=== PATIENT | female | born 1955 | race Caucasian/White ===

== ENCOUNTER → 2016-10-13 | Outpatient (CLI) | payer MEDICARE ==
[2016-10-13 21:02] LABS: Basophils # (A) 0.2 k/uL (0-0.2); Basophils % (A) 2 %; CH 30.1; CHCM 31.8; Eosinophils # (A) 0.1 k/uL (0-0.7); Eosinophils % (A) 2 %; HCT 40.6 % (34.0-46.0); HDW 2.74; HGB 12.9 gm/dL (11.4-16.0); Luc # (Auto) 0.09; Luc % (Auto) 1; Lymphocytes # (A) 2.2 k/uL (1.0-4.8); Lymphocytes % (A) 34 %; MCH 30.1 pg (25.0-35.0); MCHC 31.6 g/dL (31.0-37.0); Mean Platelet Volume 8.6; Monocytes # (A) 0.5 k/uL (0-1.0); Monocytes % (A) 7 %; Neutrophils # (A) 3.4 k/uL (1.3-7.7); Neutrophils % (A) 53 %; RBC 4.28 m/uL (3.80-5.40); RDW 14.6 % (11.5-15.5); WBC 6.4 k/uL (3.8-10.6); WBC (Perox) 6.14
[2016-10-13 21:14] LABS: ALT 29 U/L (9-52); AST 26 U/L (14-36); Alkaline Phosphatase 73 U/L (38-126); Anion Gap 12 mmol/L; Blood Urea Nitrogen 15 mg/dL (7-17); Calcium 9.8 mg/dL (8.4-10.2); Carbon Dioxide 22 mmol/L (22-30); Chloride 106 mmol/L (98-107); Glucose 101 mg/dL (74-99); Non-African American GFR(MDRD) 51 (>60 ml/min/1.73 sqM); Potassium 5.1 mmol/L (3.5-5.1); Sodium 140 mmol/L (137-145); Total Bilirubin 0.5 mg/dL (0.2-1.3); Total Protein 7.3 g/dL (6.3-8.2)
== END ==
LOC: LABMAIN 19:43
PROVIDERS: ATTEND Otolaryngology
DX: R22.0 Localized swelling, mass and lump, head (principal)
CPT/HCPCS: 36415; 80053; 84443; 85025

== ENCOUNTER 2016-12-01 04:56 | Inpatient (IN) | payer MEDICARE ==
[2016-12-01] MEDS ORDERED: LORazepam 2 MG/ML SYRINGE IV STA (05:00)
[2016-12-01] MEDS ORDERED: HYDROmorphone 1 MG/ML 1 ML SYRINGE IVP STA (05:00)
--- NOTE | 2016-12-01 05:04 | ED ---
Chest Pain HPI - General Stated Complaint: chest pain Time Seen by Provider: 12/01/16 04:56 Source: patient, EMS, RN notes reviewed Mode of arrival: EMS - History of Present Illness Initial Comments: Is a 61-year-old female with a history of throat cancer who had her last chemotherapy done about 2 weeks ago who states she had the onset around 8:30 last evening of sharp left-sided chest pain. She states get worse tonight she did take aspirin nitroglycerin without any relief. Is 10/10 in severity sharp in nature goes across her chest from below her left breast to the middle. She has some nausea with it no fevers chills or sweats. She was brought in by EMS for evaluation. She states it does get worse when she moves proximal or bruits. She also states she recently got I port placed in her right upper chest wall. MD Complaint: chest pain - Related Data Home Medications Medication Instructions Recorded Confirmed Albuterol Sulfate [Proair Hfa] 2 puff INHALATION BID 03/17/16 12/01/16 Ezetimibe/Simvastatin [Vytorin 1 tab PO DAILY 03/17/16 12/01/16 10-40 mg Tablet] FLUoxetine HCL [Fluoxetine HCl] 20 mg PO DAILY 03/17/16 12/01/16 Levothyroxine Sodium [Synthroid] 75 mcg PO DAILY 03/17/16 12/01/16 Omeprazole [Omeprazole] 40 mg PO DAILY 03/17/16 12/01/16 Tiotropium 18 Mcg/Puff [Spiriva] 1 puff INHALATION BID 03/17/16 12/01/16 Topiramate [Topiramate] 50 mg PO DAILY 03/17/16 12/01/16 Previous Rx's Medication Instructions Recorded Clindamycin [Cleocin] 300 mg PO Q6H #40 capsule 09/17/16 Ondansetron Odt [Zofran Odt] 4 mg PO Q8HR PRN #12 tab 09/17/16 Allergies Allergy/AdvReac Type Severity Reaction Status Date / Time ceftriaxone sodium Allergy Anaphylaxis Verified 09/16/16 23:32 [From Rocephin] Sulfa (Sulfonamide Allergy Unknown Verified 09/16/16 23:32 Antibiotics) Childhood Review of Systems ROS Statement: Those systems with pertinent positive or pertinent negative responses have been documented in the HPI. ROS Other: All systems not noted in ROS Statement are negative. EKG Findings - EKG Results: EKG: interpreted by ERMD, sinus rhythm (EKG shows a rate of 98 PA interval 156 QRS duration 96 QT/QTc is 374/477 poor R-wave progression no acute ST-T wave changes) Past Medical History Past Medical History: COPD, Dementia Additional Past Medical History / Comment(s): MS History of Any Multi-Drug Resistant Organisms: None Reported Past Surgical History: Appendectomy, Hysterectomy, Joint Replacement, Orthopedic Surgery Additional Past Surgical History / Comment(s): carpal tunel bilateral hands, R rotator cuff Past Psychological History: Anxiety Smoking Status: Current every day smoker Past Alcohol Use History: None Reported Past Drug Use History: None Reported General Exam - General Exam Comments Initial Comments: This is a well-developed well-nourished anxious appearing female General appearance: alert, anxious Head exam: Present: atraumatic, normocephalic, normal inspection Eye exam: Present: normal appearance, PERRL, EOMI. Absent: scleral icterus, conjunctival injection, periorbital swelling ENT exam: Present: normal exam, mucous membranes moist Neck exam: Present: normal inspection. Absent: tenderness, meningismus, lymphadenopathy Respiratory exam: Present: normal lung sounds bilaterally, chest wall tenderness (Reproducible tenderness palpation over the left costal sternal junction additionally there is a port noted in her right upper chest wall with some ecchymosis. No evidence of any infectious process. No drainage.). Absent : respiratory distress, wheezes, rales, rhonchi, stridor Cardiovascular Exam: Present: regular rate, normal rhythm, normal heart sounds. Absent: systolic murmur, diastolic murmur, rubs, gallop, clicks GI/Abdominal exam: Present: soft, normal bowel sounds. Absent: distended, tenderness, guarding, rebound, rigid Extremities exam: Present: normal inspection, full ROM, normal capillary refill. Absent: tenderness, pedal edema, joint swelling, calf tenderness Back exam: Present: normal inspection Neurological exam: Present: alert, oriented X3, CN II-XII intact Psychiatric exam: Present: normal affect, normal mood Skin exam: Present: warm, dry, intact, normal color. Absent: rash Course Vital Signs 12/01/16 12/01/16 12/01/16 05:00 05:41 06:34 Temperature 98.1 F Pulse Rate 95 92 82 Respiratory 20 16 14 Rate Blood Pressure 144/81 128/69 126/68 O2 Sat by Pulse 93 L 100 100 Oximetry 12/01/16 12/01/16 12/01/16 06:44 06:51 07:15 Temperature 97.0 F L Pulse Rate 78 82 77 Respiratory 14 16 12 Rate Blood Pressure 127/74 161/80 142/73 O2 Sat by Pulse 100 100 100 Oximetry Chest Pain MDM - MDM X-ray shows evidence of infiltrates consistent with pneumonia. Patient will be admitted place on antibiotics she is ALLERGIC to ceftriaxone but can take penicillins. She was placed on pneumonia protocol with oncology consultation. Disposition Clinical Impression: Neutropenia, Pneumonia, Chest wall pain Disposition: ADMITTED IP TO THIS HOSP Condition: Stable
[2016-12-01 05:33] LABS: Aty Lym Flag Marked; CH 30.4; CHCM 33.2; HCT 25.7 % (34.0-46.0); HDW 2.42; MCH 31.1 pg (25.0-35.0); MCHC 33.9 g/dL (31.0-37.0); MCV 91.9 fL (80.0-100.0); Mean Platelet Volume 8.1; RDW 14.1 % (11.5-15.5)
[2016-12-01 05:36] LABS: HGB 8.7 gm/dL (11.4-16.0); WBC 0.7 k/uL (3.8-10.6)
[2016-12-01 05:40] LABS: ALT 51 U/L (9-52); AST 25 U/L (14-36); Alkaline Phosphatase 95 U/L (38-126); Amylase <30 U/L (30-110); Anion Gap 11 mmol/L; Blood Urea Nitrogen 13 mg/dL (7-17); Calcium 8.5 mg/dL (8.4-10.2); Carbon Dioxide 23 mmol/L (22-30); Chloride 102 mmol/L (98-107); Glucose 126 mg/dL (74-99); Magnesium 1.7 mg/dL (1.6-2.3); Non-African American GFR(MDRD) 56 (>60 ml/min/1.73 sqM); Potassium 3.8 mmol/L (3.5-5.1); Sodium 136 mmol/L (137-145); Total Bilirubin 0.5 mg/dL (0.2-1.3); Total Protein 6.3 g/dL (6.3-8.2)
--- NOTE | 2016-12-01 05:47 | XR ---
EXAM: XR Chest, 2 Views. CLINICAL HISTORY: Reason: Chest Pain TECHNIQUE: Frontal and lateral views of the chest. COMPARISON: 11/18/15. FINDINGS: Lungs: Patchy airspace opacities seen in both lower lobes, as well as within the right middle lobe, suggestive of a multifocal bronchopneumonia. Findings may also be aspiration related. Pleural spaces: No evidence of pleural effusion or pneumothorax. Heart: The heart is normal in size. Mediastinum: No mediastinal widening or shift. There is a right anterior chest wall Port-A-Cath with the tip at the SVC/RA junction.. Bones: Unremarkable. No acute fracture. IMPRESSION: Bilateral lower lobe and right middle lobe airspace opacities most likely representing a multifocal bronchopneumonia.
[2016-12-01 05:52] LABS: Creatine Kinase 38 U/L (30-135)
[2016-12-01 05:53] LABS: INR 1.1 (<1.1); Partial Thromboplastin Time 26.5 sec (22.0-30.0)
[2016-12-01 06:01] LABS: Add Differential Manual Differential
[2016-12-01 06:02] LABS: Manual Review Performed
[2016-12-01 06:05] LABS: Creatine Kinase MB 0.6 ng/mL (0.0-2.4); Troponin I <0.012 ng/mL (0.000-0.034)
[2016-12-01] MEDS ORDERED: FLUMAZENIL 0.1 MG/ML 5 ML VIAL IVP STA (06:30)
[2016-12-01] MEDS ORDERED: NALOXONE 0.4 MG/ML 1 ML VIAL IV STA (06:44)
[2016-12-01] MEDS ORDERED: PIPERACILLIN-TAZOBACTAM 3.375 GM in DEXTROSE/WATER 1 50ML.BAG IVPB STA (07:30)
[2016-12-01] MEDS ORDERED: LEVOFLOXACIN 750MG-D5W PMX 750 MG in DEXTROSE/WATER 1 150ML.BAG IVPB STA (07:36)
[2016-12-01] MEDS ORDERED: PNEUMONIA PROTOCOL UTILIZED 1 EACH MISC PO PRN (07:36)
[2016-12-01] MEDS ORDERED: ONDANSETRON ODT 4 MG TAB PO PRN (07:39)
[2016-12-01] MEDS: SODIUM CHLORIDE 0.9% 1,000 ML IV SCH ×2 (07:50→18:09)
[2016-12-01 08:31] LABS: Glucose,Whole Blood 137 mg/dL (75-99)
[2016-12-01] MEDS ORDERED: TIOTROPIUM 18 MCG/PUFF INHALER INHALATION SCH (09:00)
[2016-12-01] MEDS ORDERED: FLUoxetine HCL 20 MG CAP PO SCH (09:00)
[2016-12-01 09:45] VITALS: BMI 22.9
[2016-12-01] MEDS: LEVOTHYROXINE 75 MCG TAB PO SCH (09:51)
[2016-12-01] MEDS: ATORVASTATIN 20 MG TAB PO SCH (09:52)
[2016-12-01] MEDS: EZETIMIBE 10 MG TAB PO SCH (09:52)
[2016-12-01] MEDS: PANTOPRAZOLE 40 MG TABLET PO SCH (09:52)
[2016-12-01] MEDS: TOPIRAMATE 25 MG TAB PO SCH (09:53)
[2016-12-01 10:31] LABS: Hemoglobin A1C 5.6 % (4.2-6.1)
[2016-12-01] MEDS ORDERED: RX INFO: IV CONTRAST WAS GIVEN 1 EACH MISC MISCELLANE PRN ×2 (11:04→11:06)
[2016-12-01] MEDS: KETOROLAC 30 MG/ML 1 ML VIAL IVP PRN (11:20)
[2016-12-01] MEDS ORDERED: ALBUTEROL NEBULIZED 2.5 MG/3 ML INHALATION PRN (11:46)
[2016-12-01] MEDS ORDERED: valACYclovir HCL 1,000 MG TABLET PO PRN (11:46)
[2016-12-01] MEDS ORDERED: DIAZEPAM 5 MG TAB PO PRN (11:46)
[2016-12-01] MEDS ORDERED: ONDANSETRON 4 MG TAB PO PRN (11:46)
[2016-12-01] MEDS ORDERED: NITROGLYCERIN SL TABS 0.4 MG TAB SUBLINGUAL PRN (11:46)
[2016-12-01 11:49] LABS: Glucose,Whole Blood 98 mg/dL (75-99)
[2016-12-01] MEDS: IPRATROPIUM-ALBUTEROL 3 ML NEB INHALATION SCH ×3 (12:38→19:40)
[2016-12-01] MEDS: INSULIN LISPRO (humaLOG) 300 UNIT/3 ML VIAL SQ SCH ×3 (13:21→21:14)
--- NOTE | 2016-12-01 14:13 | HP ---
DATE OF ADMISSION: The patient is with a history of lymphoma actively receiving chemotherapy. A 61-year-old female came in with complaints of severe left upper quadrant pain, sharp in nature, radiating to the back and shoulder area. Patient was also complaining of shortness of breath, although patient does not have any subjective signs of shortness of breath. Patient is saturating well at 100% on 2 L, although I do not believe she will need oxygen and patient is not uncomfortable at this point of time, not in respiratory distress, although patient's lung exam shows rhonchus breath sounds bilaterally. Patient was started on Zosyn, was admitted with possibility of pneumonia. Patient has minimally elevated D-dimer, although my suspicion is low for PE. Patient's left upper quadrant abdominal pain increases with deep breathing. Patient denied any fever or chills. Patient denied any nausea, vomiting. REVIEW OF SYSTEMS: CONSTITUTIONAL: No fever, no malaise, no fatigue. HEENT: No recent visual problems or hearing problems. Denied any sore throat. CARDIOVASCULAR: No chest pain, orthopnea, PND, no palpitations, no syncope. PULMONARY: No shortness of breath, no cough, no hemoptysis. GASTROINTESTINAL: As mentioned earlier. NEUROLOGICAL: No headaches, no weakness, no numbness. HEMATOLOGICAL: Denies any bleeding or petechiae. GENITOURINARY: Denies any burning micturition, frequency, or urgency. MUSCULOSKELETAL/RHEUMATOLOGICAL: Denies any joint pain, swelling, or any muscle pain. ENDOCRINE: Denies any polyuria or polydipsia. The rest of the 14 point review of systems is negative. Home medications include: 1. Albuterol. 2. Vytorin. 3. Fluoxetine. 4. Levothyroxine. 5. Omeprazole. 6. Tiotropium. 7. Topamax. 8. Clindamycin. 9. Ondansetron. ALLERGIES: Allergic to CEFTRIAXONE although she tolerated Zosyn very well and SULFA drugs. PAST MEDICAL HISTORY: Significant for COPD, dementia, multiple sclerosis, and patient does have a history of B-cell lymphoma, appendectomy, hysterectomy, joint replacement surgery, hernia repair, anxiety. The patient does smoke. Denied any alcohol abuse or any drug abuse. Family history is unknown, are not documented here. PHYSICAL EXAMINATION: VITAL SIGNS: Temperature 96.3, pulse of 80, respiratory rate of 16, blood pressure 137/72, saturating at 100% on 2 L O2 by nasal cannula. GENERAL: The patient is thin built, alert and oriented x3, is in significant distress because of pain. HEENT: Pupils are round and equally reacting to light. EOMI. No scleral icterus. No conjunctival pallor. Normocephalic, atraumatic. No pharyngeal erythema. No thyromegaly. CARDIOVASCULAR: S1 and S2 present. No murmurs, rubs, or gallops. LUNG EXAMINATION: Rhonchus breath sounds bilaterally. No wheezing was appreciated. No crackles appreciated. Fairly good air entry into bilateral lung shah. ABDOMEN: Left upper quadrant tenderness was appreciated. No rebound or rigidity. Abdomen is soft. MUSCULOSKELETAL: No joint swelling or deformity. EXTREMITIES: No cyanosis, clubbing, or pedal edema. NEUROLOGICAL: Gross neurological examination did not reveal any focal deficits. SKIN: No rashes. LABORATORY DATA: CBC, CMP are abnormal for low WBC count of 700. Unfortunately, I do not have any differential here which is apparently not available because of extremely low WBC. The rest of the labs are essentially within normal limits. ASSESSMENT AND PLAN: 1. Left upper quadrant abdominal pain. I need to rule out any splenic issues including splenic infarct. Patient does have lymphoma. This pain can be related to lymphoma itself and lymph nodes compressing on one of the nervous system in the abdomen. At the same time, I will also obtain a CT of the chest with contrast to: 1) Rule out pulmonary embolism, although my suspicion is low for that and also to see if there is any pathologies in the lung actually whether patient had pneumonia or not that would help me in continuation or discontinuation of antibiotics. As of now, I will continue with antibiotics. 2. Possibility of bilateral pneumonia . Patient is on Zosyn, which will be continued, until I get the above lab testing available. 3. Hypothyroidism. 4. Leukopenia and probable severe neutropenia secondary to lymphoma and chemotherapy secondary to lymphoma. 5. Lymphoma. Management as per Oncology. Oncology was consulted. 6. Chronic obstructive pulmonary disease without any acute exacerbation. 7. Rule out pneumonia. 8. Mild to moderate protein calorie malnutrition.
[2016-12-01] MEDS: MORPHINE SULFATE 4 MG/ML SYRINGE IVP PRN ×3 (14:19→22:41)
--- NOTE | 2016-12-01 15:00 | CT ---
CT CHEST FOR PULMONARY EMBOLISM. EXAMINATION TYPE: CT angio chest DATE OF EXAM: 12/01/2016 12:33 PM INDICATION: Lt chest pain CT DLP: 1669 mGycm, Automated exposure control for dose reduction was used. CONTRAST: Patient injected with 80 mL of Visipaque 320. COMPARISON: NONE TECHNIQUE: CT of the chest is performed on a spiral scan at 2 mm thick sections. Study is performed with intravenous contrast timed for evaluation for pulmonary embolism. This will limit additional po rtions of the evaluation. 3-D MIP images reconstructed by the technologist are reviewed on the compu ter in the coronal and sagittal planes. FINDINGS: No persistent filling defects are evident to suggest an acute pulmonary embolism. No mediastinal or hilar adenopathy enlarged by CT criteria is evident. The ascending aorta diameter at the level of the main pulmonary artery is 3.4 cm. The main pulmonary artery diameter at the bifur cation is 3.0 cm. Descending thoracic aortic vascular calcification. There is some dependent lung base infiltrates present diffusely. Atelectasis likely present. Infectio us etiology could be considered. Limited CT section through the upper abdomen are unremarkable. IMPRESSIONS: 1. No acute pulmonary embolism. 2. Bibasilar infiltrates. Consider atelectasis or an infectious etiology.
--- NOTE | 2016-12-01 15:05 | CT ---
EXAMINATION TYPE: CT abdomen w con DATE OF EXAM: 12/01/2016 12:33 PM COMPARISON: 03/17/2016 HISTORY: Lt side chest pain, history of B-cell lymphoma. CT DLP: 1669 mGycm Automated exposure control for dose reduction was used. TECHNIQUE: Helical acquisition of images was performed from the lung bases through the top of iliac crest to include entire abdomen. CONTRAST: Performed without Oral Contrast and with IV Contrast, patient injected with 80 mL of Visipaque 320. FINDINGS: LUNG BASES: Scattered patchy infiltrates are present. Atelectasis and pneumonia should be considered. Follow-up can be performed. LIVER/GB: No biliary dilatation is evident. Mild fatty infiltration may be present. Gallbladder surgi [place] absent PANCREAS: No significant abnormality is seen. SPLEEN: No significant abnormality is seen. ADRENALS: There is a 1.3 cm hypodensity within the anterior left adrenal gland could be an angiomyoli meaghan. Right adrenal gland is normal. KIDNEYS: No significant abnormality is seen. BOWEL: No significant abnormality is seen. LYMPH NODES: No abnormal adenopathy is evident. OSSEOUS STRUCTURES: No significant abnormality is seen. OTHER: Aortic dilatation is present within the midportion measuring 3.3 cm AP dimension. This extends into the right common iliac artery. The transverse dimension of the right common iliac artery is 3.0 cm. IMPRESSION: 1. NO SUSPICIOUS ADENOPATHY WITHIN THE ABDOMEN. 2. ABDOMINAL AORTIC ECTASIA MEASURING 3.3 CM ANEURYSMAL DILATATION EXTENDING INTO THE RIGHT COMMON IL IAC ARTERY MEASURING 3.0 CM. 3. PATCHY INFILTRATES BILATERAL LUNG BASE CORRELATE FOR PNEUMONIA.. 4. EXAMINATION OF THE ABDOMEN APPEARS STABLE FROM 03/17/2016 CT ABDOMEN. LUNG BASE FINDINGS ARE AN INT ERVAL CHANGE
--- NOTE | 2016-12-01 16:36 | P.CONS ---
History of Present Illness - Reason for Consult Consult date: 12/01/16 neutropenia, lymphoma Requesting physician: Chavez Babin - Chief Complaint chest pain - History of Present Illness Patient is a very pleasant 61-year-old female patient of oncologist Dr. Allan in [place]. Patient states that she was diagnosed with lymphoma in October of this year. Patient had difficulty in swallowing, feeling like there was a "cottonball "stuck in the back of her throat. Patient was seen locally by Dr. Vergara, she had images done and eventually had biopsies performed, she was referred to Dr. Allan for treatment and oncology care. Patient states that just about 2 weeks ago she had her first cycle of chemotherapy, from our discussion it sounds as though she has received R CHOP, with 5 days of oral prednisone. She does recall receiving injection the day after chemotherapy that would be consistent with Neulasta. She had no significant side effects other than left chest discomfort that started last evening. The pain is in the rib area, it radiates to her left axilla and across the epigastric area into the sternal area, she has associated mild nausea, denies any diaphoresis, vomiting, shortness of breath, slight cough but denies any hemoptysis or purulent sputum, no indigestion or heartburn, abdominal pain, distention, she was not able to relate the pain to eating, she did only start having the pain last evening about 8:30 and has not ate anything since, denies diarrhea, constipation, black or bloody stools, dysuria, hematuria, swelling, numbness, tingling or rashes. Review of Systems All systems: negative Constitutional: Reports as per HPI Past Medical History Past Medical History: COPD, Dementia, Diabetes Mellitus Additional Past Medical History / Comment(s): MS, B Cell Lymphoma (currently recieving chemo therapy) History of Any Multi-Drug Resistant Organisms: None Reported Past Surgical History: Appendectomy, Hysterectomy, Joint Replacement, Orthopedic Surgery Additional Past Surgical History / Comment(s): carpal tunel bilateral hands, R rotator cuff, hernia repair Past Psychological History: Anxiety Smoking Status: Current every day smoker Past Alcohol Use History: None Reported Past Drug Use History: None Reported Medications and Allergies Home Medications Medication Instructions Recorded Confirmed Type Albuterol Sulfate [Proair Hfa] 2 puff INHALATION RT-Q4H PRN 03/17/16 12/01/16 History Ezetimibe/Simvastatin [Vytorin 1 tab PO HS 03/17/16 12/01/16 History 10-40 mg Tablet] Levothyroxine Sodium [Synthroid] 75 mcg PO DAILY 03/17/16 12/01/16 History Omeprazole [Omeprazole] 40 mg PO DAILY 03/17/16 12/01/16 History Tiotropium 18 Mcg/Puff [Spiriva] 1 puff INHALATION RT-DAILY 03/17/16 12/01/16 History Topiramate [Topiramate] 50 mg PO BID 03/17/16 12/01/16 History Aspirin 325 mg PO DAILY 12/01/16 12/01/16 History Baclofen [Baclofen] 10 mg PO TID 12/01/16 12/01/16 History Diazepam [Diazepam] 5 mg PO BID PRN 12/01/16 12/01/16 History Diclofenac Sodium 1.5% Transdermal 2 - 4 ml PO QID PRN 12/01/16 12/01/16 History Solution Esomeprazole Magnesium [NexIUM] 40 mg PO DAILY 12/01/16 12/01/16 History FLUoxetine HCL [Fluoxetine HCl] 40 mg PO DAILY 12/01/16 12/01/16 History Fluticasone/Salmeterol [Advair 1 puff PO RT-BID 12/01/16 12/01/16 History 250-50 Diskus] Gabapentin [Neurontin] 1,200 mg PO TID 12/01/16 12/01/16 History Nitroglycerin Sl Tabs [Nitrostat] 0.4 mg SUBLINGUAL Q5M PRN 12/01/16 12/01/16 History Ondansetron HCl [Ondansetron HCl] 8 mg PO DAILY PRN 12/01/16 12/01/16 History Ranitidine HCl 150 mg PO BID 12/01/16 12/01/16 History Tolterodine Tartrate [Detrol LA] 4 mg PO DAILY 12/01/16 12/01/16 History metFORMIN HCL [Metformin HCl] 500 mg PO BID 12/01/16 12/01/16 History valACYclovir HCL [Valtrex] 2,000 mg PO DIRECTED PRN 12/01/16 12/01/16 History Allergies Allergy/AdvReac Type Severity Reaction Status Date / Time ceftriaxone sodium Allergy Anaphylaxis Verified 12/17/16 23:32 [From Rocephin] Sulfa (Sulfonamide Allergy Unknown Verified 09/16/16 23:32 Antibiotics) Childhood Physical Exam Vitals: Vital Signs Temp Pulse Pulse Resp BP BP Pulse Ox 12/01/16 08:36 96.3 F L 88 16 161/73 100 12/01/16 07:55 80 12 137/72 100 Intake and Output 12/01/16 12/01/16 12/01/16 06:59 14:59 22:59 Other: Voiding Method Toilet # Voids 1 Weight 62.596 kg Patient Weight 12/02/16 06:59 Weight 62.596 kg - Constitutional General appearance: cooperative, severe distress, thin - EENT dry mucus membranes, no thrush gross ulcer Eyes: anicteric sclerae - Neck Neck: no lymphadenopathy - Respiratory Respiratory: right: diminished, left: CTA - Cardiovascular Rhythm: regular Heart sounds: normal: S1, S2 leg Peripheral Edema: bilateral: None - Gastrointestinal General gastrointestinal: no absent bowel sounds, no decreased bowel sounds, no distended, no hepatomegaly, no hyperactive bowel sounds, normal bowel sounds, no organomegaly, no rigid, no scaphoid, soft, no splenomegaly, no tenderness, no umbilical hernia, no ventral hernia - Neurologic Neurologic: CNII-XII intact - Musculoskeletal Pain with palpation to the left lower ribs, no deformity, chest expansion equal , pt guarding inferior to the left breast Musculoskeletal: strength equal bilaterally - Psychiatric Psychiatric: A&O x's 3, appropriate affect, intact judgment & insight Results CBC & Chem 7: 12/01/16 05:12 12/01/16 05:12 Labs: Abnormal Lab Results - Last 24 Hours (Table) 12/01/16 Range/Units 08:29 POC Glucose (mg/dL) 137 H (75-99) mg/dL Comments: EKG reviewed-NSR Chest x-ray: report reviewed CT scan - abdomen: report reviewed CT scan - chest: report reviewed Assessment and Plan (1) Chest wall pain Narrative/Plan: Chest x-ray is showing some right infiltrates, nothing significant on the left, there is no discussion of rib fractures, CT is negative for pulmonary embolism, CT of the abdomen is negative for obstruction, perforation or splenic abnormality. EKG was negative for evidence of cardiac compromise. Based on the ruling out of myocardial in fraction, splenic infarct or other acute situation, patient will be started on intensive therapy for suspect gastritis. Patient is currently receiving pain meds as well. Patient will be monitored closely for any acute changes in her condition. Status: Acute (2) Neutropenia Narrative/Plan: Pt received Neulasta and from her description of her approximate dates of therapy GCSF will be initiated in the a.m. Labs daily. Status: Acute (3) Gastritis Narrative/Plan: Suspect gastritis based on patient's symptoms and ruling out of more acute problems. Patient did receive 5 days of prednisone therapy, patient is also profoundly neutropenic at this time. Carafate has been ordered, Protonix is prescribed. We'll see how patient progresses in the next 24-48 hours, may possibly need a gastroenterology consult if her symptoms persist. Status: Acute
[2016-12-01] MEDS: SUCRALFATE 1 GM TAB PO SCH ×2 (18:08→21:19)
[2016-12-01] MEDS: BACLOFEN 10 MG TAB PO SCH ×2 (19:01→21:55)
[2016-12-01] MEDS: GABAPENTIN 400 MG CAP PO SCH ×2 (19:01→21:57)
[2016-12-01] MEDS: SYMBICORT 80-4.5 MCG INHALER INHALATION SCH (19:40)
[2016-12-01 20:29] LABS: Glucose,Whole Blood 131 mg/dL (75-99)
[2016-12-01] MEDS: FLUoxetine HCL 20 MG CAP PO SCH (21:56)
[2016-12-01] MEDS: PIPERACILLIN-TAZOBACTAM 3.375 GM in DEXTROSE/WATER 1 50ML.BAG IVPB SCH ×2 (21:57→21:59)
[2016-12-02] MEDS: MORPHINE SULFATE 4 MG/ML SYRINGE IVP PRN ×3 (01:35→08:44)
[2016-12-02] MEDS: SODIUM CHLORIDE 0.9% 1,000 ML IV SCH (04:59)
[2016-12-02] MEDS: LEVOTHYROXINE 75 MCG TAB PO SCH (06:29)
[2016-12-02] MEDS: KETOROLAC 30 MG/ML 1 ML VIAL IVP PRN (07:05)
[2016-12-02] MEDS: SUCRALFATE 1 GM TAB PO SCH (07:06)
[2016-12-02] MEDS: FLUoxetine HCL 20 MG CAP PO SCH (07:06)
[2016-12-02] MEDS: ATORVASTATIN 20 MG TAB PO SCH (07:07)
[2016-12-02] MEDS: GABAPENTIN 400 MG CAP PO SCH (07:07)
[2016-12-02] MEDS: BACLOFEN 10 MG TAB PO SCH (07:07)
[2016-12-02] MEDS: TOPIRAMATE 25 MG TAB PO SCH (07:07)
[2016-12-02] MEDS: PANTOPRAZOLE 40 MG TABLET PO SCH (07:07)
[2016-12-02] MEDS: EZETIMIBE 10 MG TAB PO SCH (07:07)
--- NOTE | 2016-12-02 07:38 | XR ---
EXAMINATION TYPE: XR chest 2V DATE OF EXAM: 12/02/2016 7:31 AM COMPARISON: 12/01/2016 INDICATION: Pneumonia TECHNIQUE: Single frontal view of the chest is obtained. FINDINGS: The heart size is normal. The pulmonary vasculature is normal. There is an infiltrate at the posterior right lung base is mildly increased lung markings at the left base. Port is present on the right with the tip in the proximal right atrium. Findings are improving IMPRESSION: 1. Improving right lower lobe and left base infiltrates
[2016-12-02 07:40] LABS: Aty Lym Flag Marked; CH 30.3; CHCM 31.4; HCT 25.3 % (34.0-46.0); HDW 2.49; HGB 8.1 gm/dL (11.4-16.0); MCH 30.8 pg (25.0-35.0); MCHC 31.9 g/dL (31.0-37.0); MCV 96.7 fL (80.0-100.0); Mean Platelet Volume 7.7; RBC 2.62 m/uL (3.80-5.40); RDW 14.2 % (11.5-15.5); WBC (Perox) 1.65
[2016-12-02 07:51] LABS: WBC 1.4 k/uL (3.8-10.6)
[2016-12-02 07:55] LABS: Anion Gap 9 mmol/L; Blood Urea Nitrogen 11 mg/dL (7-17); Calcium 8.4 mg/dL (8.4-10.2); Carbon Dioxide 22 mmol/L (22-30); Chloride 108 mmol/L (98-107); Glucose 86 mg/dL (74-99); Non-African American GFR(MDRD) >60 (>60 ml/min/1.73 sqM); Potassium 4.1 mmol/L (3.5-5.1); Sodium 139 mmol/L (137-145)
[2016-12-02] MEDS ORDERED: TIOTROPIUM 18 MCG/PUFF INHALER INHALATION SCH (08:00)
[2016-12-02] MEDS: INSULIN LISPRO (humaLOG) 300 UNIT/3 ML VIAL SQ SCH (08:15)
[2016-12-02] MEDS: PIPERACILLIN-TAZOBACTAM 3.375 GM in DEXTROSE/WATER 1 50ML.BAG IVPB SCH (08:43)
[2016-12-02] MEDS ORDERED: OXYBUTYNIN XL 5 MG TAB.ER.24 PO SCH (09:00)
[2016-12-02] MEDS ORDERED: FILGRASTIM-SNDZ 300 MCG/0.5 ML SYRINGE SQ SCH (09:00)
[2016-12-02] MEDS: SYMBICORT 80-4.5 MCG INHALER INHALATION SCH (09:00)
[2016-12-02] MEDS ORDERED: ASPIRIN 325 MG TAB PO SCH (09:00)
[2016-12-02] MEDS ORDERED: LEVOFLOXACIN 750 MG TAB PO SCH (09:00)
[2016-12-02 09:32] LABS: Add Differential Manual Differential
[2016-12-02 09:36] LABS: Manual Review Performed; Nucleated Red Blood Cells 0 /100 WBC (0-0); Total Cells Counted 100
[2016-12-02 09:58] VITALS: BP 141/65; PULSE 87; RESP 18; TEMP 98.3
--- NOTE | 2016-12-02 12:38 | DS ---
DATE OF ADMISSION: 12/01/2016 DATE OF DISCHARGE: 12/02/2016 Patient is admitted secondary to lymphoma and admitted secondary to abdominal pain and patient does have history of lymphoma. The patient was neutropenic when she came in. Neutropenia is improving at this point of time. Patient was treated with antibiotics for possibility of pneumonia although we did a CT of the chest and also abdominal CT. Abdominal CT essentially did not show any abnormality. CT of the chest did show some diffuse nonspecific infiltrates, but no clear-cut lobar pneumonia. I cannot completely rule out atypical pneumonia. Because of that reason, I will go ahead and discharge the patient on Levofloxacin for 5 more days. The patient is otherwise clinically doing well. Patient was seen and examined on the day of discharge. Regarding her abdominal pain which is significantly improved, I will use 25 mcg of fentanyl patch and I did job counselor her regarding constipation associated with opiates and patient will be discharged today. Patient was seen and examined on the day of discharge. Vital signs stable. PHYSICAL EXAMINATION: GENERAL: The patient is alert and oriented x3, not in any acute distress. Well developed, well nourished. HEENT: Pupils are round and equally reacting to light. EOMI. No scleral icterus. No conjunctival pallor. Normocephalic, atraumatic. No pharyngeal erythema. No thyromegaly. CARDIOVASCULAR: S1 and S2 present. No murmurs, rubs, or gallops. PULMONARY: Chest is clear to auscultation, no wheezing or crackles. ABDOMEN: Patient still has abdominal tenderness the left lower quadrant. ABDOMEN: Soft, nondistended. MUSCULOSKELETAL: No joint swelling or deformity. EXTREMITIES: No cyanosis, clubbing, or pedal edema. NEUROLOGICAL: Gross neurological examination did not reveal any focal deficits. SKIN: No rashes. Laboratory data was reviewed which showed improvement in leukocytosis. ASSESSMENT AND PLAN: 1. Left upper quadrant abdominal pain, etiology is unclear. May be related to cancer itself. 2. Rule out pulmonary embolism. 3. Possibility of bilateral atypical pneumonia. 4. Hypothyroidism. 5. Severe neutropenia secondary to chemotherapy associated with lymphoma. 6. Lymphoma. 7. Chronic obstructive pulmonary disease without any acute exacerbation. 8. Mild to moderate protein calorie malnutrition. Please refer to my depart summary for further details of discharge medications and activity as tolerated. Patient will follow with Dr. Carlin Helton in about 3 to 7 days. Activity as tolerated. Regular diet.
--- NOTE | 2016-12-07 08:36 | CDI ---
In responding to this query, please exercise your independent professional judgment. The [facility] Coding Staff and Clinical Documentation Specialists appreciate your assistance in clarifying documentation, maintaining compliance with coding guidelines, accurately documenting patients condition and capturing severity of illness. The fact that a question is asked does not imply that any particular answer is desired or expected. Communication forms are a method of clarifying documentation and are not made part of the Legal Health Record. Thank you in advance for your clarification. Last Revision, August 2015 Ileana Cassidy [address] [facility] [place] [address] Documentation Clarification Form Date: 12/07/2016 8:12:00 AM From: Zaira Randall Phone: Admit Date: 12/01/2016 7:36:00 AM Patient Name: Katja Chapman Visit Number: [id number] Discharge Date: 12/02/16 Dr. Liam James Conflicting documentation has been found in the medical record. In medical consult documentation it is stated that gastritis is suspected. History/Risk Factors: under treatment for B cell lymphoma, COPD, DM, dementia Clinical Indicators: pain in rib area, it radiates to left axilla and across the epigastric area into the sternal area, has associated mild nausea, not related to eating Treatment: Carafate & Protonix In your opinion what is the most clinically appropriate diagnosis for this patient? Probable gastritis LUQ pain, etiology unclear OTHER explanation of clinical findings Unable to determine (no explanation for clinical findings) Please document in your progress notes and discharge summary in order to capture severity of illness and risk of mortality. Include clinical findings that support your diagnosis. FYI: Press F11 to launch patient chart. DEEDEE Beauchamp, CCS, AHIMA Certified I-10 Ring Spinner/Marine Diver Ring Spinner II LETI
--- NOTE | 2016-12-11 15:37 | CDI ---
In responding to this query, please exercise your independent professional judgment. The [facility] Coding Staff and Clinical Documentation Specialists appreciate your assistance in clarifying documentation, maintaining compliance with coding guidelines, accurately documenting patients condition and capturing severity of illness. The fact that a question is asked does not imply that any particular answer is desired or expected. Communication forms are a method of clarifying documentation and are not made part of the Legal Health Record. Thank you in advance for your clarification. Last Revision, August 2015 Ileana Cassidy [address] [facility] [place] [address] Documentation Clarification Form Date: 12/07/2016 8:12:00 AM From: Zaira Randall Phone: Admit Date: 12/01/2016 7:36:00 AM Patient Name: Katja Chapman Visit Number: [id number] Discharge Date: 12/11/16 Dr. Liam James Conflicting documentation has been found in the medical record. In medical consult documentation it is stated that gastritis is suspected. History/Risk Factors: under treatment for B cell lymphoma, COPD, DM, dementia Clinical Indicators: pain in rib area, it radiates to left axilla and across the epigastric area into the sternal area, has associated mild nausea, not related to eating Treatment: Carafate & Protonix In your opinion what is the cause of the LUQ pain? Probable gastritis LUQ pain, etiology unclear OTHER explanation of clinical findings Unable to determine (no explanation for clinical findings) Please document in your progress notes and discharge summary in order to capture severity of illness and risk of mortality. Include clinical findings that support your diagnosis. FYI: Press F11 to launch patient chart. DEEDEE Beauchamp, CCS, AHIMA Certified I-10 Construction Management Assistant/Web Portal Developer Construction Management Assistant II x LETI
== END 2016-12-02 11:40 | disposition home or self-care (01) | DRG 190 ==
LOC: EC 04:56 → 4MS4W 07:36 → 5ONC 14:49
PROVIDERS: ADMIT Internal Medicine; ATTEND Internal Medicine
DX: J44.0 Chronic obstructive pulmonary disease with (acute) lower respiratory infection (principal); J18.9 Pneumonia, unspecified organism; E44.0 Moderate protein-calorie malnutrition; C85.10 Unspecified B-cell lymphoma, unspecified site; F03.90 Unspecified dementia, unspecified severity, without behavioral disturbance, psychotic disturbance, mood disturbance, and anxiety; D70.1 Agranulocytosis secondary to cancer chemotherapy; G89.3 Neoplasm related pain (acute) (chronic); R13.10 Dysphagia, unspecified; G35 Multiple sclerosis; E03.9 Hypothyroidism, unspecified; T45.1X5A Adverse effect of antineoplastic and immunosuppressive drugs, initial encounter; F41.9 Anxiety disorder, unspecified; E11.9 Type 2 diabetes mellitus without complications; F17.200 Nicotine dependence, unspecified, uncomplicated; K29.70 Gastritis, unspecified, without bleeding; Z88.1 Allergy status to other antibiotic agents; Z88.2 Allergy status to sulfonamides; Z92.21 Personal history of antineoplastic chemotherapy; Z96.60 Presence of unspecified orthopedic joint implant; Z79.84 Long term (current) use of oral hypoglycemic drugs; Z79.82 Long term (current) use of aspirin; Z79.51 Long term (current) use of inhaled steroids; Z79.899 Other long term (current) drug therapy
CPT/HCPCS: 36415; 71020; 71275; 74160; 80048; 80053; 82150; 82550; 82553; 83036; 83690; 83735; 83880; 84484; 84550; 85025; 85379; 85610; 85730; 87040; 93005; 94640; 96365; 96375; 99285

== ENCOUNTER → 2016-12-21 | Outpatient (CLI) | payer MEDICARE ==
[2016-12-21 16:49] LABS: ALT 28 U/L (9-52); AST 17 U/L (14-36); Alkaline Phosphatase 83 U/L (38-126); Anion Gap 10 mmol/L; Blood Urea Nitrogen 10 mg/dL (7-17); Carbon Dioxide 25 mmol/L (22-30); Chloride 107 mmol/L (98-107); Glucose 103 mg/dL (74-99); LDH 339 U/L (313-618); Non-African American GFR(MDRD) 58 (>60 ml/min/1.73 sqM); Potassium 4.5 mmol/L (3.5-5.1); Sodium 142 mmol/L (137-145); Total Bilirubin 0.2 mg/dL (0.2-1.3); Total Protein 6.1 g/dL (6.3-8.2)
[2016-12-21 16:53] LABS: Aty Lym Flag Moderate; CH 29.7; CHCM 30.6; HCT 26.3 % (34.0-46.0); HGB 8.2 gm/dL (11.4-16.0); Hypochromasia Moderate; MCH 30.2 pg (25.0-35.0); MCHC 31.1 g/dL (31.0-37.0); MCV 97.2 fL (80.0-100.0); Mean Platelet Volume 7.2; RBC 2.71 m/uL (3.80-5.40); RDW 15.4 % (11.5-15.5); WBC (Perox) 1.58
[2016-12-21 20:12] LABS: Add Differential Manual Differential
[2016-12-21 20:19] LABS: Nucleated Red Blood Cells 0 /100 WBC (0-0); Total Cells Counted 100
[2016-12-21 20:22] LABS: Polychromasia Present
[2016-12-21 20:23] LABS: Large Platelets Present; Manual Review Performed
[2016-12-21 22:54] LABS: WBC 1.5 k/uL (3.8-10.6)
== END | disposition home or self-care (01) ==
LOC: LABWHC1 15:55
PROVIDERS: ATTEND Internal Medicine
DX: C83.30 Diffuse large B-cell lymphoma, unspecified site (principal)
CPT/HCPCS: 36415; 80053; 83615; 85025

== ENCOUNTER 2017-01-06 14:18 | Emergency (ER) | payer MEDICARE ==
[2017-01-06 14:37] VITALS: RESP 18
--- NOTE | 2017-01-06 14:58 | ED ---
Recheck HPI - General Chief Complaint: Recheck/Abnormal Lab/Rx Stated Complaint: Recheck /Port Time Seen by Provider: 01/06/17 14:38 Source: patient, RN notes reviewed Mode of arrival: wheelchair Limitations: no limitations - History of Present Illness Initial Comments: 61-year-old female presents emergency department with a chief complaint of pain and drainage from the port. Patient states she had a port placed due to her cancer. Patient states last night she found that his symptoms SINCE THEN SHE'S HAD SOME PAIN OVER THE PART. PATIENT STATES NOW SOME DRAINAGE AROUND HER CLOSE DAYS THAT SHE WAS CONCERNED. PATIENT STATES THAT SHE IS NOT CURRENTLY HAVING ANY OTHER SYMPTOMS. PATIENT DENIES ANY FEVER CHILLS COUGH COLD RUNNY NOSE. PATIENT STATES THAT SHE WAS CONCERNED DUE TO THE CONTINUED PAIN OVER THE POOR AND THE DRAIN AND SO SHE THOUGHT THAT SHE SHOULD BE EVALUATED. Patient denies any recent fever, chills, shortness of breath, chest pain, back pain, abdominal pain, nausea vomiting, numbness or tingling, dysuria or hematuria, constipation or diarrhea, headaches or visual changes, or any other current symptoms. - Related Data Home Medications Medication Instructions Recorded Confirmed Albuterol Sulfate [Proair Hfa] 2 puff INHALATION RT-Q4H PRN 03/17/16 01/06/17 Ezetimibe/Simvastatin [Vytorin 1 tab PO HS 03/17/16 01/06/17 10-40 mg Tablet] Levothyroxine Sodium [Synthroid] 75 mcg PO DAILY 03/17/16 01/06/17 Omeprazole 40 mg PO BID 03/17/16 01/06/17 Tiotropium 18 Mcg/Puff [Spiriva] 1 puff INHALATION RT-DAILY 03/17/16 01/06/17 Topiramate 50 mg PO BID 03/17/16 01/06/17 Aspirin 325 mg PO DAILY 12/01/16 01/06/17 Baclofen 10 mg PO TID 12/01/16 01/06/17 Diazepam 5 mg PO BID PRN 12/01/16 01/06/17 Esomeprazole Magnesium [NexIUM] 40 mg PO BID 12/01/16 01/06/17 FLUoxetine HCL [Fluoxetine HCl] 40 mg PO DAILY 12/01/16 01/06/17 Fluticasone/Salmeterol [Advair 1 puff PO RT-BID 12/01/16 01/06/17 250-50 Diskus] Gabapentin [Neurontin] 1,200 mg PO TID 12/01/16 01/06/17 Nitroglycerin Sl Tabs [Nitrostat] 0.4 mg SUBLINGUAL Q5M PRN 12/01/16 01/06/17 Ranitidine HCl 150 mg PO BID 12/01/16 01/06/17 Tolterodine Tartrate [Detrol LA] 4 mg PO HS 12/01/16 01/06/17 metFORMIN HCL [Metformin HCl] 500 mg PO BID 12/01/16 01/06/17 valACYclovir HCL [Valtrex] 2,000 mg PO DIRECTED PRN 12/01/16 01/06/17 Ampyra Er 10mg 1 tab PO BID 01/06/17 01/06/17 Fluticasone Nasal [place] [Flonase 2 spr NASAL DAILY 01/06/17 01/06/17 Nasal [place]] Multivitamins, Thera [Multivitamin 1 tab PO DAILY 01/06/17 01/06/17 (formulary)] Ondansetron HCl [Zofran] 4 mg PO DAILY PRN 01/06/17 01/06/17 fentaNYL [Duragesic 25MCG/HR] 1 patch TRANSDERM Q48H 01/06/17 01/06/17 predniSONE 100 mg PO DAILY 01/06/17 01/06/17 Allergies Allergy/AdvReac Type Severity Reaction Status Date / Time ceftriaxone sodium Allergy Anaphylaxis Verified 01/06/17 14:37 [From Rocephin] Sulfa (Sulfonamide Allergy Unknown Verified 01/06/17 14:37 Antibiotics) Childhood Review of Systems ROS Statement: Those systems with pertinent positive or pertinent negative responses have been documented in the HPI. ROS Other: All systems not noted in ROS Statement are negative. Past Medical History Past Medical History: COPD, Diabetes Mellitus Additional Past Medical History / Comment(s): MS, B Cell Lymphoma (currently recieving chemo therapy) diverticulitis History of Any Multi-Drug Resistant Organisms: None Reported Past Surgical History: Appendectomy, Hysterectomy, Joint Replacement, Orthopedic Surgery Additional Past Surgical History / Comment(s): carpal tunel bilateral hands, R rotator cuff, hernia repair Past Psychological History: Anxiety Smoking Status: Current every day smoker Past Alcohol Use History: None Reported Past Drug Use History: None Reported General Exam Limitations: no limitations General appearance: alert, in no apparent distress Head exam: Present: atraumatic, normocephalic, normal inspection Neck exam: Present: normal inspection. Absent: tenderness, meningismus, lymphadenopathy Respiratory exam: Present: normal lung sounds bilaterally. Absent: respiratory distress, wheezes, rales, rhonchi, stridor Cardiovascular Exam: Present: regular rate, normal rhythm, normal heart sounds, other (She does appear to have a port over the right lung and does appear to have a healing incisional scar. It is tender to touch with some discoloration noted.). Absent: systolic murmur, diastolic murmur, rubs, gallop, clicks Back exam: Present: normal inspection Neurological exam: Present: alert, oriented X3, CN II-XII intact. Absent: motor sensory deficit Psychiatric exam: Present: normal affect, normal mood Skin exam: Present: warm, dry, intact, normal color. Absent: rash Course Vital Signs 01/06/17 14:32 Temperature 98.3 F Pulse Rate 96 Respiratory 18 Rate Blood Pressure 152/79 O2 Sat by Pulse 98 Oximetry Medical Decision Making - Medical Decision Making 61-year-old female presents emergency Department with a chief complaint of concern about port. This time for is function x-ray was reviewed and negative. This and we discussed up with her doctor for continued care of the port. The patient stated that she understood and is in agreement with plan. All questions have been answered. She will be discharged. - Radiology Data Radiology results: report reviewed, image reviewed Disposition Clinical Impression: Portacath in place Disposition: HOME SELF-CARE Condition: Stable Instructions: Hydrocodone/Acetaminophen (By mouth) Additional Instructions: Please use medication as discussed. Please follow up with family doctor if symptoms have not improved over the next two days. Please return to the emergency room if your symptoms increase or worsen or for any other concerns. Referrals: Carlin Helton MD [Primary Care Provider] - 1-2 days Time of Disposition: 16:07
--- NOTE | 2017-01-06 15:33 | XR ---
EXAMINATION TYPE: XR chest 2V DATE OF EXAM: 01/06/2017 3:27 PM COMPARISON: 12/02/2016 HISTORY: 61-year-old female with lymphoma, pain, leaky port TECHNIQUE: PA and lateral views FINDINGS: The cardiomediastinal silhouette, aorta, and pulmonary vasculature are within normal limits. There is residual mild interstitial prominence, improved from 12/02/2016. No consolidation or pleural effusion. Right anterior chest wall injection port with catheter tip at the lower SVC. IMPRESSION: Interstitial changes have improved from 12/02/2016. Residual changes are probably chronic. No definite acute process.
[2017-01-06] MEDS ORDERED: HYDROcodone/APAP 5-325MG 1 EACH TAB PO STA (15:42)
[2017-01-06 16:38] VITALS: BP 133/75; PULSE 68; TEMP 97.6
== END 2017-01-06 16:38 | disposition home or self-care (01) ==
LOC: EC 14:18
DX: T85.848A Pain due to other internal prosthetic devices, implants and grafts, initial encounter (principal); G89.18 Other acute postprocedural pain; J44.9 Chronic obstructive pulmonary disease, unspecified; E11.9 Type 2 diabetes mellitus without complications; F41.9 Anxiety disorder, unspecified; G35 Multiple sclerosis; F17.200 Nicotine dependence, unspecified, uncomplicated; Z95.828 Presence of other vascular implants and grafts; Z79.82 Long term (current) use of aspirin; Z79.899 Other long term (current) drug therapy; Z79.52 Long term (current) use of systemic steroids; Z88.1 Allergy status to other antibiotic agents; Z88.2 Allergy status to sulfonamides; Z85.72 Personal history of non-Hodgkin lymphomas; Y83.8 Other surgical procedures as the cause of abnormal reaction of the patient, or of later complication, without mention of misadventure at the time of the procedure
CPT/HCPCS: 71020; 99282